=== PATIENT | female | born 1955 | race Caucasian/White ===

== ENCOUNTER 2023-06-13 15:08 | Outpatient (CLI) | payer MEDICARE, OTHER ==
--- NOTE | 2023-06-13 16:32 | DEXA Report ---
PROCEDURE: Dexa Spine and/or Hip INDICATIONS: POST MENOPAUSAL TECHNIQUE: Dual energy x-ray absorptiometry (DXA) was performed on a [employer] System. Regions measur ed are the AP Spine, femoral neck, and if needed forearm. COMPARISON: None FINDINGS: Lumbar Spine: Bone Mineral Density 1.012 g/cm/cm,T score -1.4. Osteopenia Left Femoral Neck: Bone Mineral Density 0.762 g/cm/cm, T score -2.0. Osteopenia Left Hip: Bone Mineral Density 0.980 g/cm/cm,T score -0.2. Normal (T score greater or equal to -1.0: NORMAL) (T score from -1.1 to -2.4: OSTEOPENIA) (T score less than or equal to -2.5 to: OSTEOPOROSIS) Impression: By WHO criteria, this patient has low bone density (osteopenia). Patients with diagnosis of osteoporosis or osteopenia should have regular bone mineral density assess ment. For those eligible for Medicare, routine testing is allowed once every 2 years. Testing frequ ency can be increased for patients who have rapidly progressing disease or for those who are receivin g medical therapy to restore bone mass. Reviewed by: Paulina England MD on 06/13/2023 4:30 PM PDT Approved by: Paulina England MD on 06/13/2023 4:30 PM PDT Station ID: [id number]
== END 2023-06-13 15:09 | disposition home or self-care (01) ==
LOC: DI 15:08
PROVIDERS: ATTEND Physician Assistant
DX: M85.89 Other specified disorders of bone density and structure, multiple sites (principal); Z78.0 Asymptomatic menopausal state

== ENCOUNTER 2023-08-13 12:59 | Outpatient (CLI) | payer MEDICARE, OTHER ==
--- NOTE | 2023-08-21 09:34 | Mammography Report ---
BILATERAL DIGITAL SCREENING MAMMOGRAM 3D/2D: 08/13/2023 CLINICAL: Routine screening. No prior exams were available for comparison. There are scattered areas of fibroglandular density in both breasts (category b / 25%-50% glandular t issue). There is a focal asymmetry in the right breast lower inner quadrant at middle depth. No other significant masses, calcifications, or other findings are seen in either breast. IMPRESSION: INCOMPLETE: NEEDS ADDITIONAL IMAGING EVALUATION The focal asymmetry in the right breast is indeterminate. A diagnostic mammogram and ultrasound are recommended. Comparison to prior exams if they become available can be performed. Based on the Tyrer Cuzick model (a risk assessment model) the patients lifetime risk is 8.7% and her 10 year risk is 4.4%. According to the ACR, ACS, and NCCN guidelines, an annual breast MRI exam mac g with mammogram is recommended if the patients lifetime risk is 20% or greater. This exam was interpreted at Station ID: [id number]. NOTE: For mammograms, a report in lay terms will be sent to the patient. Approximately 15% of breast malignancies will not be visualized mammographically. In the management of a palpable breast mass, a negative mammogram must not discourage biopsy of a clinically suspicious lesion. Electronically Signed By: Rukhsana Qureshi M.D., PH.D eb/:08/20/2023 21:58:00 ACR BI-RADS Category 0: Incomplete 3340F PARENCHYMAL PATTERN: (A) - The breast(s) demonstrate(s) scattered fibroglandular densities. BI-RADS CATEGORY: (0) - 0 Mammo and [place] [id number] Immediate follow-up LATERALITY: (B)
== END 2023-08-13 13:00 | disposition home or self-care (01) ==
LOC: DI 12:59
DX: Z12.31 Encounter for screening mammogram for malignant neoplasm of breast (principal); R92.323 Mammographic fibroglandular density, bilateral breasts; R92.8 Other abnormal and inconclusive findings on diagnostic imaging of breast

== ENCOUNTER 2023-10-17 13:49 | Outpatient (CLI) | payer MEDICARE, OTHER ==
--- NOTE | 2023-10-17 21:46 | XRAY Report ---
PROCEDURE: Wrist 3 View LT INDICATIONS: LEFT WRIST PAIN TECHNIQUE: 3 views of the wrist were acquired. COMPARISON: None. FINDINGS: Bones: No fractures or dislocations. Severe first CMC and STT joint space narrowing and juxta-articu lar osteophytosis with radial subluxation. No suspicious bony lesions. Soft tissues: No suspicious soft tissue calcifications or masses. IMPRESSION: 1.No acute bony abnormality. 2.Severe first CMC and STT osteoarthritis. Reviewed by: Gael Dumont MD on 10/17/2023 9:45 PM PST Approved by: Gael Dumont MD on 10/17/2023 9:45 PM PST Station ID: [id number]
== END 2023-10-17 13:50 | disposition home or self-care (01) ==
LOC: DI 13:49
PROVIDERS: ATTEND Physician Assistant
DX: M19.032 Primary osteoarthritis, left wrist (principal)

== ENCOUNTER 2023-11-26 11:01 | Outpatient (CLI) | payer MEDICARE, OTHER ==
[2023-11-26 18:03] LABS: BASOPHILS % (AUTO) 0.6 %; EOSINOPHILS # (AUTO) 0.2 10^3/uL (0.0-0.7); EOSINOPHILS % (AUTO) 5.2 %; HCT - HEMATOCRIT 35.5 % (37.0-47.0); HGB - HEMOGLOBIN 11.5 g/dL (12.0-16.0); LYMPHOCYTES # (AUTO) 1.6 10^3/uL (1.5-3.5); LYMPHOCYTES % (AUTO) 43.1 %; MEAN CORPUSCULAR HEMOGLOBIN 31.1 pg (27.0-31.0); MEAN CORPUSCULAR HGB CONC 32.4 g/dL (32.0-36.0); MEAN CORPUSCULAR VOLUME 95.9 fL (81.0-99.0); MEAN PLATELET VOLUME 9.9 fL (7.9-10.8); MONOCYTES # (AUTO) 0.3 10^3/uL (0.0-1.0); NEUTROPHILS # (AUTO) 1.6 10^3/uL (1.5-6.6); NEUTROPHILS % (AUTO) 42.8 %; PLT - PLATELET COUNT 263 10^3/uL (130-450); RED CELL DISTRIBUTION WIDTH 13.6 % (12.0-15.0); WHITE BLOOD COUNT 3.6 x10^3/uL (4.8-10.8)
[2023-11-26 18:38] LABS: FERRITIN 227.8 ng/mL (11.0-306.8)
== END 2023-11-26 11:02 | disposition home or self-care (01) ==
LOC: LAB.N 11:01
PROVIDERS: ATTEND Physician Assistant
DX: D64.9 Anemia, unspecified (principal)
CPT/HCPCS: 36415; 82607; 82728; 82746; 83540; 84466; 85025

== ENCOUNTER 2024-04-22 12:55 | Outpatient (CLI) | payer MEDICARE, OTHER ==
--- NOTE | 2024-04-22 15:23 | XRAY Report ---
PROCEDURE: Chest 2V INDICATIONS: ACUTE COUGH TECHNIQUE: 2 views of the chest were acquired. COMPARISON: None. FINDINGS: Surgical changes and devices: None. Lungs and pleura: No pleural effusions or pneumothorax. Mild linear atelectasis versus scarring with in the left mid and lower lung periphery. Lungs are otherwise clear. Mediastinum: Mediastinal contours appear normal. Heart size is normal. Bones and chest wall: No suspicious bony lesions. Overlying soft tissues appear unremarkable. IMPRESSION: No acute cardiopulmonary process. Reviewed by: Edilberto Liz MD on 04/22/2024 3:21 PM PDT Approved by: Edilberto Liz MD on 04/22/2024 3:21 PM PDT Station ID: [id number]
== END 2024-04-22 15:14 | disposition home or self-care (01) ==
LOC: DI.N 12:55
PROVIDERS: ATTEND Physician Assistant Medical
DX: R05.1 Acute cough (principal)

== ENCOUNTER 2024-07-12 07:25 | Outpatient (CLI) | payer MEDICARE, OTHER ==
[2024-07-12 12:53] LABS: CHOL/HDL RATIO 3.9 (<4.4); CHOLESTEROL 219 mg/dL; HDL CHOLESTEROL 56 mg/dL; LDL CHOLESTEROL,CALCULATED 133 mg/dL; LDL/HDL RATIO 2.4 (<4.4); TRIGLYCERIDES 151 mg/dL; VLDL CHOLESTEROL 30 mg/dL
== END 2024-07-12 07:26 | disposition home or self-care (01) ==
LOC: LAB.N 07:25
PROVIDERS: ATTEND Physician Assistant
DX: E78.5 Hyperlipidemia, unspecified (principal)
CPT/HCPCS: 36415; 80061; 83721